=== PATIENT | male | born 1940 | race Caucasian/White ===

== ENCOUNTER 2019-10-31 08:08 | Day surgery (SDC) | payer MEDICARE, OTHER ==
[~2019-10-31] VITALS: Ht 185.4 cm; Wt 79.0 kg
[2019-10-31 08:50] VITALS: BP 122/71
[2019-10-31] MEDS ORDERED: FENTANYL PF 100 MCG/2ML ONE (08:52)
[2019-10-31] MEDS ORDERED: MIDAZOLAM 1 MG/ML, 2ML ONE (08:53)
[2019-10-31] MEDS ORDERED: LACTATED RINGERS 1,000 ML IV SCH (08:54)
[2019-10-31 09:30] LABS: BASOPHILS # (AUTO) 0.03 x10^3/uL (0-0.1); BASOPHILS % (AUTO) 1 % (0-1); EOSINOPHILS # (AUTO) 0.08 x10^3/uL (0-0.4); EOSINOPHILS % (AUTO) 1 % (1-7); LYMPHOCYTES # (AUTO) 1.37 x10^3/uL (1-3.4); LYMPHOCYTES % (AUTO) 24 % (22-44); MD NO; MEAN CORPUSCULAR HEMOGLOBIN 32.3 pg (27.5-34.5); MEAN CORPUSCULAR VOLUME 98.1 fL (81-97); MEAN PLATELET VOLUME 8.5 fL (7.4-10.4); MONOCYTES # (AUTO) 0.51 x10^3/uL (0.2-0.8); MONOCYTES % (AUTO) 9 % (2-9); NEUTROPHILS # (AUTO) 3.81 x10^3/uL (1.8-6.8); NEUTROPHILS % (AUTO) 66 % (42-75); PLATELET COUNT 178 x10^3/uL (130-400); RED BLOOD COUNT 4.16 x10^6/uL (4.38-5.82); RED CELL DISTRIBUTION WIDTH 14.5 % (9.4-14.8)
[2019-10-31] MEDS ORDERED: ONDANSETRON 2MG/ML, 2ML IV PRN (09:30)
[2019-10-31] MEDS ORDERED: MORPHINE SULFATE 4 MG/ML, 1ML IVPush PRN (09:30)
[2019-10-31] MEDS ORDERED: hydrALAzine 20 MG/ML, 1ML IV PRN (09:30)
[2019-10-31] MEDS ORDERED: LABETALOL 5MG/ML, 20ML IV PRN (09:30)
[2019-10-31] MEDS ORDERED: FENTANYL PF 100 MCG/2ML IV PRN (09:30)
[2019-10-31] MEDS ORDERED: OXYcodone 5 MG/5 ML ORAL.SOL UDC PO PRN (09:30)
[2019-10-31] MEDS ORDERED: AMIT25TA PO (09:34)
[2019-10-31] MEDS ORDERED: LATANOPROST (09:34)
[2019-10-31] MEDS ORDERED: METF500T17 PO (09:34)
[2019-10-31] MEDS ORDERED: LINA5TAB PO (09:34)
[2019-10-31] MEDS ORDERED: GABA300C10 PO (09:34)
[2019-10-31] MEDS ORDERED: LEVO50TA5 PO (09:34)
[2019-10-31] MEDS ORDERED: ZONI100C29 PO (09:34)
[2019-10-31 09:42] LABS: ALANINE AMINOTRANSFERASE 18 U/L (12-78); ALBUMIN 3.8 g/dL (3.4-5.0); ANION GAP 6 mmol/L (5-15); CALCIUM 8.8 mg/dL (8.5-10.1); CHLORIDE 111 mmol/L (98-107)
[2019-10-31 09:45] LABS: ALKALINE PHOSPHATASE 87 U/L (45-117); BILIRUBIN,TOTAL 0.4 mg/dL (0.2-1.0); TOTAL PROTEIN 6.8 g/dL (6.4-8.2)
== END 2019-10-31 11:15 | disposition home or self-care (01) ==
LOC: OUT 08:08
PROVIDERS: ATTEND Internal Medicine Gastroenterology
DX: D21.4 Benign neoplasm of connective and other soft tissue of abdomen (principal); K31.89 Other diseases of stomach and duodenum; E11.22 Type 2 diabetes mellitus with diabetic chronic kidney disease; N18.9 Chronic kidney disease, unspecified; E03.9 Hypothyroidism, unspecified; R56.9 Unspecified convulsions; Z79.84 Long term (current) use of oral hypoglycemic drugs; Z79.899 Other long term (current) drug therapy
CPT/HCPCS: 36415; 43237; 43239; 80053; 85025; 88305; 88341; 88342; 93005; J2250; J3010